=== PATIENT | female | born 1970 | race African-American/Black ===

== ENCOUNTER 2017-11-30 11:42 | Emergency (ER) | payer SELFPAY ==
[2017-11-30] MEDS ORDERED: KETOROLAC 60 MG/2 ML INJ. (12:45)
[2017-11-30] MEDS: KETOROLAC 60 MG/2 ML INJ. IM (12:48)
== END 2017-11-30 13:01 | disposition home or self-care (01) ==
LOC: ER 11:42
DX: S39.012A Strain of muscle, fascia and tendon of lower back, initial encounter (principal); V43.52XA Car driver injured in collision with other type car in traffic accident, initial encounter; Y93.I9 Activity, other involving external motion; Y92.481 Parking lot as the place of occurrence of the external cause; Y99.8 Other external cause status
CPT/HCPCS: 72100; 96372; 99284-25; J1885